=== PATIENT | female | born 1990 | race African-American/Black ===

== ENCOUNTER 2016-11-24 08:31 | Emergency (ER) | payer OTHER ==
[~2016-11-24] VITALS: Ht 157.5 cm; Wt 63.0 kg
[~2016-11-24 08:31] MED LIST: CEPH500 PO; IBUP600 PO; LORTA5 PO; NO CURRENT MEDS; SIME80 PO
[2016-11-24 08:32] VITALS: BP 125/62; PULSE 75; RESP 14; TEMP 98.2; O2SAT 98
[2016-11-24 09:48] LABS: BACTERIA, URINE OCC /hpf; BLOOD, URINE NEG (NEG); COMMENT (UR) CULT NOT INDICATED; CULTURE IF INDICATED CULT NOT INDICATED; GLUCOSE,URINE NEG (NEG); KETONE, URINE TRACE mg/dL (NEG); MUCUS URINE MANY /lpf (OCC); NITRITE,URINE NEG (NEG); PH, URINE 5.5 (5.0-8.5); SQUAMOUS EPITHELIAL CELL URINE 3 /hpf (0-5); URINE COLOR YELLOW (YELLW/STRAW)
--- NOTE | 2016-11-24 10:01 | PD ---
HPI Chief Complaint: Complaint Time Seen by Provider: 10:01 Travel History International Travel<30 days: No Contact w/Intl Traveler<30days: No Traveled to known affect area: No History of Present Illness HPI 26-year-old Afro-Stateless female presents the emergency Department with history of approximate 2 weeks of burning after urinating, and a strong smell to the urine. She is concerned about possible UTI. This is some yellowish vaginal discharge without pain. She denies fever, chills, abdominal pain or CVA tenderness. Patient has a history of bacterial vaginosis. She denies any new sexual partners recently. She has no known drug allergies. PFSH Past Medical History Autoimmune Disease: No Diminished Hearing: No Neurologic: No Psychiatric: No Respiratory: No ?: Not : 2 Para: 1 Past Surgical History Section: Yes Social History Alcohol Use: No Tobacco Use: No Substance Use: No Allergies-Medications (Allergen,Severity, Reaction): Coded Allergies: No Known Allergies (Unverified , 11/24/16) Reported Meds & Prescriptions Reported Meds & Active Scripts Active No Active Prescriptions or Reported Medications Review of Systems Except as stated in HPI: all other systems reviewed are Neg General / Constitutional: No: Fever Eyes: No: Visual changes HENT: No: Headaches Cardiovascular: No: Chest Pain or Discomfort Respiratory: No: Shortness of Breath Gastrointestinal: No: Abdominal Pain Genitourinary: Positive: Dysuria, Discharge, No: Pelvic Pain, Flank Pain (see history present illness.), Dyspareunia Musculoskeletal: No: Pain Skin: No Rash Neurologic: No: Weakness Psychiatric: No: Depression Endocrine: No: Polydipsia Hematologic/Lymphatic: No: Easy Bruising Physical Exam Narrative GENERAL: Patient appears no acute distress. SKIN: Warm and dry. Normal color. Normal turgor. No rash. HEAD: Atraumatic. Normocephalic. EYES: Pupils equal and round. No scleral icterus. No injection or drainage. ENT: No nasal bleeding or discharge. Mucous membranes pink and moist. Pharynx is normal. NECK: Trachea midline. Supple and nontender. CARDIOVASCULAR: Regular rate and rhythm. RESPIRATORY: No accessory muscle use. Clear to auscultation. Breath sounds equal bilaterally. GASTROINTESTINAL: Abdomen soft, non-tender, nondistended. Hepatic and splenic margins not palpable. No CVA tenderness. Pelvic exam refused by the patient. MUSCULOSKELETAL: Extremities without clubbing, cyanosis, or edema. No obvious deformities. NEUROLOGICAL: Awake and alert. No obvious cranial nerve deficits. Motor grossly within normal limits. Five out of 5 muscle strength in the arms and legs. Normal speech. PSYCHIATRIC: Appropriate mood and affect; insight and judgment normal. Data Data Last Documented VS Vital Signs Date Time Temp Pulse Resp B/P Pulse Ox O2 Delivery O2 Flow Rate FiO2 11/24/16 08:32 98.2 75 14 125/62 98 Orders Urinalysis - C+S If Indicated (11/24/16 08:58) Labs Laboratory Tests Test 11/24/16 09:00 Urine Color YELLOW Urine Turbidity HAZY Urine pH 5.5 Urine Specific [place] 1.029 Urine Protein TRACE mg/dL Urine Glucose (UA) NEG mg/dL Urine Ketones TRACE mg/dL Urine Occult Blood NEG Urine Nitrite NEG Urine Bilirubin NEG Urine Urobilinogen LESS THAN 2.0 MG/DL Urine Leukocyte Esterase TRACE Urine WBC 1 /hpf Urine Squamous Epithelial 3 /hpf Cells Urine Bacteria OCC /hpf Urine Mucus MANY /lpf Microscopic Urinalysis Comment CULT NOT INDICATED MDM Medical Decision Making Medical Screen Exam Complete: Yes Emergency Medical Condition: Yes Differential Diagnosis Dysuria. Urinary frequency. Bacterial vaginosis. Narrative Course Patient is medically stable at time of exam. Urinalysis performed in triage shows no obvious sign of infection. Findings were discussed with the patient, and pelvic exam was offered to assess for STD versus bacterial vaginosis, and the patient refuses. Patient is stable to be discharged home. [facility]. Diagnosis Primary Impression: Dysuria Referrals: [facility] Patient Instructions: General Instructions Additional Instructions: Urinalysis performed in triage shows no obvious sign of infection. Findings were discussed with the patient, and pelvic exam was offered to assess for STD versus bacterial vaginosis, and the patient refuses. Patient is stable to be discharged home. Patient follow with [facility] as discussed. Med/Other Pt SpecificInfo: No Meds Exist/No RX given Scripts No Active Prescriptions or Reported Meds Disposition: 01 DISCHARGE HOME Condition: Stable Fady Zaidi Nov 24, 2016 10:01
== END 2016-11-24 10:30 | disposition home or self-care (01) ==
LOC: NEPB 08:31
DX: R30.0 Dysuria (principal); N89.8 Other specified noninflammatory disorders of vagina
CPT/HCPCS: 81001; 99283

== ENCOUNTER 2017-02-25 16:35 | Emergency (ER) | payer OTHER ==
[~2017-02-25] VITALS: Ht 157.5 cm; Wt 68.0 kg
[2017-02-25 16:36] VITALS: BP 117/66; PULSE 80; RESP 16; TEMP 98.6; O2SAT 99
[2017-02-25] MEDS ORDERED: AZITHROMYCIN PWD FOR SUSP 1 GM PACKET PO ONE (17:45)
[2017-02-25] MEDS ORDERED: LIDOCAINE HCL 1% 50 ML VIAL IM ONE (17:45)
[2017-02-25] MEDS ORDERED: cefTRIAXone 250 MG VIAL IM ONE (17:45)
--- NOTE | 2017-02-25 18:12 | PD ---
HPI Chief Complaint: Setup Technician Problem/Complaint Time Seen by Provider: 17:25 Travel History International Travel<30 days: No Contact w/Intl Traveler<30days: No Traveled to known affect area: No History of Present Illness HPI 27 year old black female presents to the ED with a C/O of vaginal discharge & foul smelling urine x 7 days. She reports similar symptoms with previous BV although she is concerned of possible STD as she has frequent unprotected intercourse. She denies fever, chills, or ABD pain. She does report nausea without vomiting, pelvic pressure & dysuria. She also reports she had a miscarriage approximately 5 weeks ago she was less than 4 weeks at the time. Denies PMH. No home medications. PFSH Past Medical History Medical History: Denies Significant Hx Autoimmune Disease: No Diminished Hearing: No Neurologic: No Psychiatric: No Respiratory: No ?: Unknown LMP: 01/06/17 : 2 Para: 1 Past Surgical History Surgical History: No Previous Surgery Section: Yes Social History Alcohol Use: No Tobacco Use: No Substance Use: No Allergies-Medications (Allergen,Severity, Reaction): Coded Allergies: No Known Allergies (Unverified , 02/25/17) Reported Meds & Prescriptions Reported Meds & Active Scripts Active No Active Prescriptions or Reported Medications Review of Systems Except as stated in HPI: all other systems reviewed are Neg Physical Exam Narrative GENERAL: Well appearing young black female. No distress. SKIN: Warm and dry. HEAD: Normocephalic. EYES: No scleral icterus. No injection or drainage. NECK: Supple, trachea midline. No JVD or lymphadenopathy. CARDIOVASCULAR: Regular rate and rhythm without murmurs, gallops, or rubs. RESPIRATORY: Breath sounds equal bilaterally. No accessory muscle use. GASTROINTESTINAL: Abdomen soft, non-tender, nondistended. UROGENITAL: Cervical friability, thin whitish/cardenas discharge present in vaginal vault, no cervical motion tenderness, no adnexal mass or tenderness. MUSCULOSKELETAL: No cyanosis, or edema. BACK: Nontender without obvious deformity. No CVA tenderness. Data Data Last Documented VS Vital Signs Date Time Temp Pulse Resp B/P Pulse Ox O2 Delivery O2 Flow Rate FiO2 02/25/17 16:36 98.6 80 16 117/66 99 Orders Gc And Chlamydia Pcr (02/25/17 17:36) Wet Prep Profile (02/25/17 17:36) Azithromycin Powd Pack (Zithromax Powd P (02/25/17 17:45) Ceftriaxone Inj (Rocephin Inj) (02/25/17 17:45) Lidocaine 1% Inj (50 Ml) (Xylocaine 1% I (02/25/17 17:45) Ed Urine Pregnancytest Poc (02/25/17 17:36) Urinalysis - C+S If Indicated (02/25/17 17:42) Urine Culture (02/25/17 17:30) Labs Laboratory Tests Test 02/25/17 17:30 Urine Color YELLOW Urine Turbidity CLEAR Urine pH 5.5 Urine Specific [place] 1.022 Urine Protein NEG mg/dL Urine Glucose (UA) NEG mg/dL Urine Ketones NEG mg/dL Urine Occult Blood NEG Urine Nitrite NEG Urine Bilirubin NEG Urine Urobilinogen LESS THAN 2.0 MG/DL Urine Leukocyte Esterase NEG Urine RBC LESS THAN 1 /hpf Urine WBC 2 /hpf Urine Squamous Epithelial 1 /hpf Cells Urine Bacteria MOD /hpf Urine Mucus FEW /lpf Microscopic Urinalysis Comment CULTURE INDICATED Clue Cells (Wet Prep) NONE SEEN Vaginal Trichomonas (Wet Prep) NONE SEEN Vaginal Yeast (Wet Prep) NONE SEEN MDM Medical Decision Making Medical Screen Exam Complete: Yes Emergency Medical Condition: Yes Medical Record Reviewed: Yes Differential Diagnosis cervicitis vs uti vs vaginosis vs PID Narrative Course 27 year old black female presents to the ED with a C/O of vaginal discharge & foul smelling urine x 7 days. She is well appearing. UA, wet prep, GC/Chlamydia pending. Wet Prep: negative clue cells, negative for trich, negative for yeast. GC/Chlamydia pending Patient will be treated for cervicitis in ED & F/U with her [facility]. Diagnosis Primary Impression: Cervicitis Patient Instructions: General Instructions Scripts No Active Prescriptions or Reported Meds Disposition: 01 DISCHARGE HOME Condition: Stable Fadumo Cerda February 25, 2017 18:12 Fadumo Cerda February 25, 2017 18:12
[2017-02-25 18:17] LABS: BACTERIA, URINE MOD /hpf; BLOOD, URINE NEG (NEG); COMMENT (UR) CULTURE INDICATED; CULTURE IF INDICATED CULTURE INDICATED; GLUCOSE,URINE NEG (NEG); KETONE, URINE NEG (NEG); MUCUS URINE FEW /lpf (OCC); NITRITE,URINE NEG (NEG); PH, URINE 5.5 (5.0-8.5); SQUAMOUS EPITHELIAL CELL URINE 1 /hpf (0-5); URINE COLOR YELLOW (YELLW/STRAW)
[2017-02-25 22:22] LABS: CHLAMYDIA PCR NOT DETECTED (NOT DETECT); NEISSERIA PCR NOT DETECTED (NOT DETECT)
== END 2017-02-25 19:27 | disposition home or self-care (01) ==
LOC: NEPD 16:35
DX: N72 Inflammatory disease of cervix uteri (principal); B96.20 Unspecified Escherichia coli [E. coli] as the cause of diseases classified elsewhere
CPT/HCPCS: 81001; 84703; 87077; 87086; 87186; 87210; 87491; 87591; 96372; 99283; J0696

== ENCOUNTER 2017-05-31 18:51 | Observation (INO) | payer OTHER ==
[~2017-05-31] VITALS: Ht 157.5 cm; Wt 72.1 kg
[2017-05-31] MEDS ORDERED: MORPHINE SULFATE 8 MG/ML INJ IV PUSH PRN (21:00)
[2017-05-31] MEDS ORDERED: ACETAMINOPHEN 325 MG TAB PO PRN (21:00)
[2017-05-31] MEDS ORDERED: DIPHENOXYLATE/ATROPINE 2.5 MG/0.025 MG TAB PO PRN (21:00)
[2017-05-31] MEDS ORDERED: MORPHINE SULFATE 4 MG/ML INJ IV PRN (21:00)
[2017-05-31] MEDS ORDERED: LORazepam 1 MG TAB PO PRN (21:00)
[2017-05-31] MEDS ORDERED: CITRIC ACID-SODIUM CITRATE LIQ 30 ML UDC PO SCH (21:00)
[2017-05-31] MEDS: MISOPROSTOL 200 MCG TAB VAGINAL SCH (21:00)
[2017-05-31] MEDS ORDERED: LORazepam 2 MG/ML VIAL IV PRN (21:00)
[2017-05-31] MEDS ORDERED: ONDANSETRON HCL 4 MG/2 ML VIAL IV PRN (21:00)
[2017-05-31] MEDS: LACTATED RINGER'S 1000 ML INJ 1,000 ML IV SCH (21:29)
[2017-05-31] MEDS ORDERED: MISOPROSTOL 200 MCG TAB PO ONE (21:30)
[2017-05-31 21:31] LABS: BACTERIA, URINE RARE /hpf; BLOOD, URINE MOD (NEG); COMMENT (UR) CULT NOT INDICATED; CULTURE IF INDICATED CULT NOT INDICATED; GLUCOSE,URINE NEG (NEG); KETONE, URINE NEG (NEG); MUCUS URINE FEW /lpf (OCC); NITRITE,URINE NEG (NEG); PH, URINE 5.5 (5.0-8.5); SQUAMOUS EPITHELIAL CELL URINE 9 /hpf (0-5); URINE COLOR YELLOW (YELLW/STRAW)
[2017-05-31 22:07] LABS: AUTOMATED NEUTROPHIL # 3.7 TH/MM3 (1.8-7.7); BASOPHIL % 0.6 % (0.0-2.0); EOSINOPHIL # 0.6 TH/MM3 (0-0.4); EOSINOPHIL % 7.3 % (0.0-4.0); HEMATOCRIT 35.8 % (35.0-46.0); HEMO FLAGS DIFF FINAL; LYMPH % 36.6 % (9.0-44.0); LYMPHOCYTE # 2.9 TH/MM3 (1.0-4.8); MEAN CELL VOLUME 85.6 FL (80.0-100.0); MEAN CORPUSCULAR HEMOGLOBIN 28.5 PG (27.0-34.0); MEAN CORPUSCULAR HGB CONC 33.3 % (32.0-36.0); MONO % 8.4 % (0.0-8.0); NEUT % 47.1 % (16.0-70.0); PLATELET COUNT 258 TH/MM3 (150-450); RED BLOOD COUNT 4.18 MIL/MM3 (4.00-5.30)
[2017-05-31 22:41] VITALS: BP 117/54; PULSE 70; RESP 18
[2017-06-01] VITALS (27 sets, daily range): BP systolic 90–119; BP diastolic 39–65; PULSE 65–82; RESP 14–18; TEMP 98.5–99.3
[2017-06-01] MEDS: LACTATED RINGER'S 1000 ML INJ 1,000 ML IV SCH ×2 (01:37→16:25)
[2017-06-01] MEDS: MISOPROSTOL 200 MCG TAB VAGINAL SCH ×3 (01:37→09:25)
[2017-06-01] MEDS ORDERED: OXYTOCIN 30 UNITS-500ML PREMIX 500 ML ONE (09:23)
--- NOTE | 2017-06-01 10:42 | PD.OB.DELI ---
Delivery Date: Jun 01, 2017 Anesthesia: None Episiotomy: None Vaginal Delivery: Normal (delivery of 15 wk iufd) Delayed cord clamping (45 sec): No Infant: Male One Minute : 0 Five Minute : 0 Weight: pending Estimated blood loss: 500ml Additional Information On SVE, fetus and clots palpable in vagina. Vaginal delivery of 15 wk iufd ( appearance of 12 wk size), Male, normal facies. Does not appear to be recent demise. Umbilical cord not attached to placneta. Large amount of clots and possible part of placenta delivered. Tissue palpable at os. Repeat dose of misoprostol 200 micrograms given. Salma Ma MD Jun 01, 2017 10:42
--- NOTE | 2017-06-01 15:16 | HHI.DCPOC ---
Discharge Care Plan Diagnosis: (1) IUFD at less than 20 weeks of gestation Your Health Problems Are: Vaginal delivery Report Symptoms to Your Doctor -Temperature above 100.5 degrees -Redness, of incision or excessive or foul smelling drainage -Unusual pain or calf pain -Increased vaginal bleeding -Painful or difficulty urinating -Feelings of extreme sadness or anxiety after 2 weeks Goals to Promote Your Health * To prevent worsening of your condition and complications * To maintain your health at the optimal level Directions to Meet Your Goals Take your medications as prescribed Follow your dietary instruction Follow activity as directed Ensure plenty of rest for recovery Drink fluids for hydration Keep your appointments as scheduled Take your immunizations and boosters as scheduled If your symptoms worsen call your PCP, if no PCP go to Urgent Care Center or Emergency Room Smoking is Dangerous to Your Health. Avoid second hand smoke Call the 24-hour crisis hotline for domestic abuse at Salma Ma MD Jun 01, 2017 15:16
[2017-06-01] MEDS ORDERED: IBUP-232 PO (15:18)
[2017-06-01] MEDS ORDERED: METH-703 PO (15:19)
[2017-06-01] MEDS ORDERED: DOXYCYCLINE HYCLATE 100 MG CAP PO ONE (16:00)
--- NOTE | 2017-06-01 16:45 | RADRPT ---
EXAM DATE/TIME: 06/01/2017 15:55 [facility] COMPARISON: No previous studies available for comparison. INDICATIONS : demise at 15 weeks/retained product of conception. MEDICAL HISTORY : . demise at 15 weeks. SURGICAL HISTORY : section. ENCOUNTER: Initial ACUITY: 1 day PAIN SCORE: 0/10 LOCATION: Right pelvis MEASUREMENTS: UTERUS: 11.2 x 8.5 x 5.7 cm ENDOMETRIAL STRIPE: 10 mm RIGHT OVARY: 3.6 x 1.9 x 2.3 cm LEFT OVARY: 2.4 x 2.0 x 1.7 cm FINDINGS: UTERUS: Endometrium measures up to 10 mm with small hypoechoic nodule present measuring approximately 2-3 mm in size. There is a 1.2 x 1.4 x 1.4 cm solid hypoechoic nodule extending off the lower uterine segmen t. This is most consistent with a pedunculated fibroid. RIGHT OVARY: Ovary contains no mass or significant cystic lesion. LEFT OVARY: Ovary contains no mass or significant cystic lesion. MISCELLANEOUS: No free fluid. CONCLUSION: 1. Small hypoechoic cystic appearing nodule in the endometrium measuring 2-3 mm in size. This is of u nclear significance but could represent a small fluid collection. A short-term followup ultrasound is recommended in 5-7 days. 2. Ovaries are unremarkable in appearance. 3. Small apparent pedunculated fibroid. Gonzalo Hale MD on June 01, 2017 at 16:41 Board Certified Radiologist. This report was verified electronically.
--- NOTE | 2017-06-18 15:47 | MH ---
cc: SHITAL FIGUEROA DATE OF ADMISSION: 05/31/2017 HISTORY OF PRESENT ILLNESS The patient is a 27-year-old, 3, para 2-0-0-2, intrauterine at 15 weeks and 4 days with intrauterine demise, no heart tones and edema seen throughout the fetus. Extremities appear shortened and abnormal. care has been with [facility] for two visits. To date the labs have been normal. PAST OB HISTORY Significant for two C-sections. PAST [facility]READER HISTORY Unremarkable. She had a normal Pap smear on 04/11/2017. PAST SURGICAL HISTORY Two C-sections. SOCIAL HISTORY She denies toxic habits. MEDICATIONS She takes vitamins. ALLERGIES MACRODANTIN. PHYSICAL EXAMINATION VITAL SIGNS: On physical exam her vital signs are stable. She is afebrile. Blood pressure is 110/62. She is 159 pounds. HEAD, HEART, CHEST, LUNGS: Within normal limits. ABDOMEN: Soft, nontender, nondistended. PELVIC: The external cervical os is fingertip. The internal os is closed. The uterus is approximately 14 weeks in size. The patient is having a small amount of bloody show. ASSESSMENT AND PLAN She is 27-year-old, 3, para 2, intrauterine approximately 15 weeks with an intrauterine demise, previous x2. She has been counseled regarding the options. She chooses to be admitted to the hospital for Cytotec induction. Her placenta is posterior on ultrasound. Again, she has been counseled. MD TIGRE Powell/BINU /1:57 PM /3:32 PM
== END 2017-06-01 17:35 | disposition home or self-care (01) ==
LOC: INTOOBSV 18:51 → H2EA 18:51
PROVIDERS: ADMIT Obstetrics & Gynecology; ATTEND Obstetrics & Gynecology
DX: O02.1 Missed abortion (principal)
CPT/HCPCS: 59821; 76856; 76937; 80307; 81001; 85025; 86850; 86900; 86901; 88300; 88305; G0378; J2590; J7120; 88307; 93975